=== PATIENT | female | born 1960 | race Two or more races ===

== ENCOUNTER 2017-02-13 05:58 | Day surgery (SDC) | payer OTHER ==
[2017-02-12 09:22] VITALS: BMI 31.2
[~2017-02-13] VITALS: Ht 162.6 cm; Wt 81.1 kg
[2017-02-13] VITALS (9 sets, daily range): BP systolic 118–176; BP diastolic 74–104; PULSE 84–98; RESP 12–28; Ht 162.6 cm; Wt 81.1 kg
[~2017-02-13 05:58] MED LIST: CEFAZOLIN 2 GM/50 ML (PMX) 50 ML IVPB ONE
[2017-02-13] MEDS ORDERED: CEFAZOLIN 1 GM INJ ONE (07:00)
[2017-02-13] MEDS ORDERED: morphine SULFATE/PF (10 MG/10 ML) INJ ONE (07:05)
[2017-02-13] MEDS ORDERED: EPINEPHrine 1 MG/ML 30 ML INJ ONE (07:05)
[2017-02-13] MEDS ORDERED: SODIUM CL BACTERIOSTATIC 30 ML INJ ONE (07:05)
--- NOTE | 2017-02-13 07:05 | PREOPHP ---
DATE OF ADMISSION: 02/13/2017 HISTORY OF PRESENT ILLNESS: A 56-year-old patient is going to be admitted for diagnostic arthroscop y of left knee, partial meniscectomy, plica release, synovectomy, application of Dallas dressing . This patient has been experiencing knee pain for quite a while. Conservative treatment resulted in limited benefit to the patient. The patient has requested surgical intervention. SOCIAL HISTORY: Nonsmoker, nondrinker. ALLERGIES: NO HISTORY OF ALLERGY TO ANY MEDICATION. PAST MEDICAL HISTORY: Has been negative. PAST SURGICAL HISTORY: Appendectomy. FAMILY HISTORY: Negative. MEDICATIONS: The patient has been: 1. Sulindac. 2. Flexeril. 3. Vitamin D3. 4. Omeprazole. PHYSICAL EXAMINATION: SKIN: Within normal limits. EARS, NOSE, THROAT: PERRLA. HEAD AND NECK: Normocephalic. Trachea midline. Bilateral symmetrical carotid pulses. No mass, no bruit, no lymphadenopathy. CARDIOVASCULAR SYSTEM: Normal sinus rhythm. S1, S2 normal. No murmur. No JVD. No peripheral marcy ma. LUNGS: Clear. ABDOMEN: Slightly protuberant. No organomegaly. No mass. Bowel sounds present. GENITOURINARY AND RECTAL: Not done, not pertinent to this admission. MUSCULOSKELETAL: Height of 5 feet 4 inches, weight 190 pounds, right-handed individual. Cervical spine has minimal tenderness in the sternocleidomastoid/trapezius muscle. Shoulders were r elatively normal, normal range of motion. Elbows, forearms, wrists and hands are symmetrical and no rmal with normal neurological examination. Lumbar spine indicates 80% range of motion. There is mild tenderness over the L4-L5 and L5-S1 facet joints. Knees show symmetrical range of motion. There is mild effusion and synovitis present. There is ten derness in the joint line. No instability. NEUROLOGIC: Grossly normal. Radiologic report of the MRI of the left knee indicates oblique tear of the posterior horn of the me dial meniscus communicating with the inferior articular surface, degeneration of the third and perip heral two-third through the mid zone and diffuse tearing of the medial meniscus including flap tear, compartment arthritis . Mild chondromalacia, joint effusion. DIAGNOSES: Internal derangement of left knee, torn meniscus, plica syndrome. TREATMENT PLAN: Alternatives, risks and benefits discussed. Patient understands possible complicat ions such as infection, bleeding, nerve damage, vascular damage, possibility of deep venous thrombos is, pulmonary embolism, hypersensitivity, and even . Pryor result may not be obtained dependin g on known or unknown factors. Formal preoperative H and P is supposed to be done by the PCP. The patient understands also preoperative protocol, postoperative protocol, after surgery and she has to do range of motion exercises immediately after surgery done can do full weight bearing weight. Dictated By: LAURA MCCAIN/SANDOR Conf#: [id number] DID#: [id number]
[2017-02-13] MEDS ORDERED: MIDAZOLAM 1 MG/ML 2 ML INJ ONE (07:43)
[2017-02-13] MEDS ORDERED: PROPOFOL 20 ML ONE (07:43)
[2017-02-13] MEDS ORDERED: DEXAMETHASONE 4 MG/ML 1 ML INJ ONE (08:02)
[2017-02-13] MEDS ORDERED: ONDANSETRON 4 MG INJ ONE (08:02)
[2017-02-13] MEDS ORDERED: FENTAnyl 50 MCG/ML VIAL ONE (08:02)
[2017-02-13] MEDS ORDERED: FAMOTIDINE 20 MG INJ ONE (08:02)
[2017-02-13] MEDS ORDERED: LIDOCAINE 1% (MDV) 20 ML INJ ONE (08:02)
[2017-02-13] MEDS ORDERED: MEPERIDINE 25 MG INJ IV PRN (08:30)
[2017-02-13] MEDS ORDERED: PROCHLORPERAZINE 10 MG INJ IV PRN (08:30)
[2017-02-13] MEDS ORDERED: DIPHENHYDRAMINE 50 MG INJ IV PRN (08:30)
[2017-02-13] MEDS ORDERED: HYDROmorphONE (0.2 MG/ML) 10ML SYG IV PRN (08:30)
[2017-02-13] MEDS ORDERED: HYDROCODONE/APAP (5/325) TAB PO PRN ×2 (09:00)
--- NOTE | 2017-02-13 09:57 | OPR ---
DATE OF OPERATION: 02/13/2017 PREOPERATIVE DIAGNOSIS: Torn medial and lateral meniscus, chronic synovitis, medial plica syndrome. POSTOPERATIVE DIAGNOSIS: Torn medial and lateral meniscus, chronic synovitis, medial plica syndrome . OPERATION PERFORMED: Diagnostic arthroscopy, partial medial meniscectomy, partial lateral meniscect pierce, total synovectomy, medial plica band release, application of Dallas dressing. ANESTHESIA: General. ANESTHESIOLOGIST: BLEEDING: Minimal. COMPLICATIONS: None. OPERATIVE PROCEDURE: The patient was transferred to the operating room, placed on the operative tab le in supine position. Two grams of Ancef was given IV. Left lower extremity was prepped and draped in the routine fashion. Landmarks were marked and through two regular anterior portal parapatellar tendon, 1 medial and 1 lateral operative arthroscopy was commenced. 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 There was chronic synovitis in the medial and latera l gutter. Going to the medial compartment, there was a torn meniscus of the posteromedial corner. There was chronic massive synovitis in the entire medial compartment. Articular surface indicated 8 0% grade IV chondromalacia on the femoral and there was 40% grade IV chondromalacia on the tibial faith rface and remainder was grade III chondromalacia on tibia and femur. Partial medial meniscectomy to stable margins was done and also total synovectomy was done with Arthrocare coagulation. There was synovitis in the intercondylar notch. Again taken care of by Arthrocare coagulation. ACL was inta ct. Lateral compartment indicated mild degree of synovitis anteriorly; however, the meniscus was in tact. There was a small flap tear in the anterior horn of the lateral meniscus which again was take n care of by Arthrocare Bovie and by ablation. Going back to suprapatellar pouch, medial and latera l gutter we used Arthrocare Bovie. Total synovectomy was performed it was in the entire medial comp artment. Plica band was released and hemostasis obtained with the help of Arthrocare Bovie. Knee w as evacuated of debris with copious amount of saline irrigation. Portal was closed with benzoin and Steri-Strips. Duramorph 10 mg mixed with 10 mL of injectable saline was injected into the knee. S terile Dallas dressing was applied. Procedure was terminated. General anesthesia was stopped. The patient was taken to recovery room in good and stable condition. Dictated By: LAURA MCCAIN/SANDOR Conf#: [id number] DID#: [id number] CC: [facility];*EndCC*
== END 2017-02-13 11:00 | disposition home or self-care (01) ==
LOC: SDS 05:58
PROVIDERS: ATTEND Internal Medicine Endocrinology, Diabetes & Metabolism
DX: M23.322 Other meniscus derangements, posterior horn of medial meniscus, left knee (principal); M94.262 Chondromalacia, left knee; E66.9 Obesity, unspecified; Z68.30 Body mass index [BMI] 30.0-30.9, adult; J32.9 Chronic sinusitis, unspecified; M67.52 Plica syndrome, left knee; M65.9 Synovitis and tenosynovitis, unspecified; M22.42 Chondromalacia patellae, left knee; M23.342 Other meniscus derangements, anterior horn of lateral meniscus, left knee
CPT/HCPCS: 29880; C1713; J0171; J0690; J1100; J2175; J2250; J2274; J2405; J3010; Z7512; Z7610